=== PATIENT | female | born 1975 | race Caucasian/White ===

== ENCOUNTER 2022-04-20 07:01 | Observation (INO) | payer BC, SELFPAY ==
[2022-04-20] VITALS (21 sets, daily range): BP systolic 111–155; BP diastolic 66–98; PULSE 67–122; RESP 14–18; TEMP 36.2–36.7; O2SAT 90–100; BMI 31.5
--- NOTE | 2022-04-20 08:36 | ANES.PREANE2 ---
Pre-Anesthetic Assessment Height/Weight: Height 1.6 m Weight 80.739 kg Pulse Resp BP Pulse Ox 79 18 119/91 98 04/20/22 07:05 04/20/22 07:05 04/20/22 07:05 04/20/22 07:05 Dx laprascopy Familial anesthetic complications: None Last intake: > 8 hrs Social Tobacco and No alcohol Exam alert, oriented x 3, clear to auscultation bilaterally and regular rate & rhythm Airway Mallampati: Class I Dentition: other (no teeth) Pulmonary Asthma CV/HEM Hypertension Anesthetic Plan ASA status: 2 Anesthesia: General Risk of > 500 ml blood loss (7ml/kg in children): No Data Anesthesia Cardiac Studies: No Data to Display
--- NOTE | 2022-04-20 08:41 | PM.CONSULT ---
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 It progressively got worse until Friday night, when the pain was so bad that she was unable to walk. She presented to the ER at [facility]. Her pain was intolerable and narcotics only dulled the pain. She had imaging which showed a 9 cm left adnexal mass with normal blood flow to the ovary. She was transported here for surgery. She has had three previous sections. She was just diagnosed with hypertension and started on lisinopril. She is otherwise healthy. Review of Systems General: Reports: 10 or more systems reviewed and unremarkable except in HPI and below Vitals/I&O/Wt Last Vital Signs Pulse 79 04/20/22 07:05 Resp 18 04/20/22 07:05 BP 119/91 04/20/22 07:05 Pulse Ox 98 04/20/22 07:05 Weight last 48 hrs Weight 178 lb Physical Exam Const: COMMON NORMALS: no acute distress, patient oriented x3, no limitations, healthy appearing, alert and well nourished GENERAL APPEARANCE: cooperative, well kempt and well developed ORIENTATION/CONSCIOUSNESS: Yes awake, Yes oriented to person, Yes oriented to place and Yes oriented to time Resp: COMMON NORMALS: normal respiratory effort EFFORT & INSPECTION: Yes able to speak in complete sentences GI: COMMON NORMALS: Soft to palpation PALPATION: Yes Soft to palpation, Yes Tenderness to palpation present (GI) Details: LLQ and Yes Guarding due to palpation present (GI) in the LLQ Extremity: COMMON NORMALS: no calf tenderness Neuro: COMMON NORMALS: patient oriented x3 SENSORIUM/ORIENTATION: Yes alert, Yes oriented to person, Yes oriented to place and Yes oriented to time Psych: COMMON NORMALS: mental status grossly normal, Normal thought process present, cooperative, normal affect and speech normal APPEARANCE: Yes grossly normal and Yes well kempt ATTITUDE: Yes calm and Yes engaged SPEECH: Yes normal speech THOUGHT PROCESS: Normal thought process present A&P Assessment and plan (1) Torsion of ovary, ovarian pedicle, or fallopian tube: suspect torsion of the left adnexa. Plan laparoscopic removal of the mass and bilateral salpingectomy, if possible. 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
[2022-04-20] MEDS: acetaminophen 1,000 MG/100 ML PIGGYBACK 400 MG IV (09:16)
[2022-04-20] MEDS: gabapentin 300 mg Capsule PO (09:20)
[2022-04-20] MEDS: ketorolac 30 mg/mL INJ IVP ×3 (09:21→21:13)
[2022-04-20] MEDS: CELEcoxib 200 mg Capsule 400 MG PO (09:21)
[2022-04-20] MEDS: scopolamine 1.5 Patch 1 PATCH TRANSDERMA (09:24)
--- NOTE | 2022-04-20 11:14 | P.OP_ITS ---
Operative Report Date of procedure: April 20, 2022 Pre-op diagnosis: Preop Diagnosis left adnexal mass Post-op diagnosis: same Post-op diagnosis: left ovarian torsion Post-op findings: large, multicystic left ovarian torsion right fallopian tube adherent to anterior uterus right ovarian simple cyst Procedure done: laparoscopic left salpingoophorectomy Specimens removed/disposition: left fallopian tube and ovary to pathology Surgeon: Shira White Anesthesia: General Estimated blood loss (mL): 20 IV fluids (mL): 800 Urine output (mL): 800 Complications: none Findings: normal appearing uterus. Evidence of prior tubal ligation. Large multicystic left ovarian torsion. Small right simple ovarian cyst. right fallopian tube adherent to anterior uterus. Condition: stable Disposition: floor Brief History: The patient presented to an outside facility. She was found to have a large, painful adnexal mass. She was transferred here for surgery. Procedure: The patient was taken to the operating room where general anesthesia was administered and found to be adequate. She was prepped and draped in the normal sterile fashion in the dorsal lithotomy position in [facility]. A weighted speculum was placed into the vagina and the anterior lip of the cervix grasped with a single-tooth tenaculum. A ZUMI uterine manipulator was placed. A Lamas catheter was placed. The weighted speculum was removed. Attention was turned to the abdomen after the gloves were changed. A 5 mm supraumbilical incision was made and carried down to the underlying layer of fascia. Using the 5 mm trocar and the scope the trocar was placed under direct visualization. Additional 5 mm ports were placed. One on the right and 1 on the left lower abdomen. These were placed under direct visualization. The uterus was elevated out of the pelvis and the entire pelvis visualized. The pelvis was visualized and found to have a large multicystic mass. When explored it was found to be the left ovary and tube. The uterus appeared to be normal. The right adnexa appeared to have a small simple cyst on the right ovary. The fallopian tube was adherent to the anterior of the uterus. To accommodate that the Endobag the right lower port was converted to a 10 mm port. Using the laparoscopic scissors the simple ovarian cysts on the left ovary were opened and drained. I was then able to use the Endo seal cautery device to clamp across the infundibulopelvic ligament. The ligament was cauterized and cut. This freed the mass from the pelvic sidewall. A small piece of fallopian tube was left and this was cauterized and removed as well. These 2 pieces of pathology were placed into an Endobag. I attempted to remove the right fallopian tube however it was adherent to the uterus and would have been difficult to remove in its entirety. I used a laparoscopic needle and drained the small simple cyst on her right ovary. The 10 mm incision was extended to make room for the Endobag. The Endobag was removed through the larger incision. The ports were removed under direct visualization and the abdomen desufflated. The fascia under the right lower port was closed with 0 Vicryl. Incisions were closed using 3-0 Vicryl and skin glue. The uterine manipulator was removed as well as the Lamas catheter. The patient tolerated the procedure well. Sponge lap and needle counts were correct x3. Taken to the recovery room in stable condition.
[2022-04-20] MEDS: metoclopramide 5 mg/mL SDV 2 mL 10 MG IVP (12:36)
[2022-04-20] MEDS: dextrose 5%-lactated ringers 1,000 ML 125 ML IV ×2 (12:38→21:16)
--- NOTE | 2022-04-20 14:01 | ANE.PACU2 ---
Inpatient post-anesthesia follow up: Airway intact: Yes Vital signs: Temperature 97.7 F Pulse Rate 78 Respiratory Rate 17 Blood Pressure 122/87 Pulse Oximetry 97 Oxygen Delivery Me thod Room Air Oxygen Flow Rate 6 Fraction of Inspir ed Oxygen Hydration adequate: Yes Nausea and vomiting: No Pain level: 2 Mental status: Baseline
[2022-04-20] MEDS: docusate sodium 100 mg Capsule PO (21:12)
[2022-04-21] MEDS: ketorolac 30 mg/mL INJ IVP (02:55)
[2022-04-21 04:11] VITALS: BP 125/78; PULSE 75; TEMP 36.6; O2SAT 98
[2022-04-21] MEDS: ibuprofen 800 mg tablet PO (09:05)
[2022-04-21] MEDS: docusate sodium 100 mg Capsule PO (09:06)
[2022-04-21 09:16] VITALS: BP 138/82; PULSE 82; RESP 15; TEMP 36.8; O2SAT 98
--- NOTE | 2022-04-21 12:56 | PM.DCS ---
Discharge Providers Date of Admission: 04/20/22 09:09 Date of Discharge: April 21, 2022 Attending Provider at Admission: Shira White MD Attending Provider at Discharge: Shria White MD Diagnoses at Discharge Discharge Diagnosis (1) Torsion of ovary, ovarian pedicle, or fallopian tube: Status: Acute Reason for Visit Reason for Visit: ABD PAIN Hospital Course Hospital Course The patient was transferred from [facility] for ovarian or tubal torsion. She arrived here and had surgery. She ended up having a large ovarian torsion. The tube and ovary were removed. She did well postoperatively and was ready for discharge on day #1 Physical Exam Narrative: doing well this morning. Pain is well controlled Const: COMMON NORMALS: no acute distress, patient oriented x3, no limitations, healthy appearing, alert and well nourished GENERAL APPEARANCE: cooperative, comfortable, well kempt and well developed ORIENTATION/CONSCIOUSNESS: Yes awake, Yes oriented to person, Yes oriented to place and Yes oriented to time Resp: COMMON NORMALS: normal respiratory effort EFFORT & INSPECTION: Yes able to speak in complete sentences GI: COMMON NORMALS: Soft to palpation and non-tender PALPATION: Yes Soft to palpation Extremity: COMMON NORMALS: no calf tenderness Neuro: COMMON NORMALS: patient oriented x3 SENSORIUM/ORIENTATION: Yes alert, Yes oriented to person, Yes oriented to place and Yes oriented to time Psych: APPEARANCE: Yes well kempt Discharge Data Studies Completed and Pending Pending at discharge Category Date Time Status ES surgery / GI images Routine Exams 04/20/22 09:10 Taken Urine Culture Routine Lab 04/20/22 08:55 Uncollected Pathology: Surgical [PTH] Routine Pth 04/20/22 11:58 Ordered Vitals Last Vital Signs Temp 98.2 F 04/21/22 09:16 Pulse 82 04/21/22 09:16 Resp 15 04/21/22 09:16 BP 138/82 04/21/22 09:16 Pulse Ox 98 04/21/22 09:16 Discharge Plan Discharge Patient Disposition: Home Condition: Stable Prescriptions: New ibuprofen 800 mg Tablet 800 mg PO Q8H Qty: 30 0RF hydrocodone-acetaminophen 5-325 mg Tablet 1 tab PO Q4H PRN (Reason: Moderate To Severe Pain) Qty: 30 0RF docusate sodium 100 mg Capsule 100 mg PO BID Qty: 60 0RF Continued Zyrtec-D 5-120 mg tablet extended release 12 hr PO 0RF lisinopril 20 mg tablet 0RF Discharge Orders: Discharge Order (Routine); Ordered 04/21/22 Ordered By: Shira White Patient Instructions: Salpingo-Oophorectomy (DC), OB Discharge Report, OB Laproscopic Surgery - [facility], Opioid Safety Activity Restrictions/Additional Instructions: Call [facility] on 04/23/22 for surgery follow up appointment to be scheduled on Friday04/26/22. Discharge Attestations Time Spent in Discharge Care*: less than 30 min Quality Metrics Clinical Quality Measures [ No reported AMI, CVA or VTE this stay] Coding Level of Care Code Acute Chg FW DC note Diagnoses Torsion of ovary, ovarian pedicle, or fallopian tube N83.53
[2022-04-21 14:21] VITALS: BP 138/89; PULSE 83; RESP 17; TEMP 36.3; O2SAT 98
== END 2022-04-21 13:15 | disposition home or self-care (01) ==
LOC: ER 07:45 → OR 08:22 → OBGYN 09:11
PROVIDERS: Admitting Provider Obstetrics & Gynecology; Emergency Provider Family Medicine; Visit Provider Obstetrics & Gynecology
PROC: (CPT 58661; principal; 2022-04-20 09:00)
DX: N83.53 Torsion of ovary, ovarian pedicle and fallopian tube (principal); I10 Essential (primary) hypertension
CPT/HCPCS: 58661; 88305; 99285; G0378; J0690; J1100; J1200; J1885; J2250; J2405; J2704; J2710; J2765; J3010; J3490